=== PATIENT | male | born 1980 | race Caucasian/White ===

== ENCOUNTER 2017-04-16 08:51 | Emergency (ER) | payer OTHER ==
[~2017-04-16] VITALS: Ht 193 cm; Wt 108.9 kg
--- NOTE | 2017-04-16 08:55 | NUR ---
WESTON FROM ASSISTED FOR ALCOHOL WITHDRAWAL- LAST DRINK YESTERDAY. GIVEN 1 MG ATIVAN 2 HRS EARLY CHILDHOOD SPECIALIST. PATIENT IS A/OX 4. BREATHING EVEN AND UNLABORED. PATIENT HAS GENERALIZED SHAKING/TREMORS. SLIGHTLY HYPERTENSIVE, NO DISTRESS. SAFETY AND COMFORT MEASURSE IN PLACE. AWAITING MD ORDERS.
[2017-04-16] MEDS ORDERED: LORAZEPAM INJ 2 MG/ML VIAL IV ONE (09:00)
[2017-04-16] MEDS ORDERED: IV NS 0.9% 1,000 ML BAG IV ONE (09:00)
[2017-04-16] MEDS ORDERED: LORAZEPAM INJ 2 MG/ML VIAL ONE (09:02)
--- NOTE | 2017-04-16 09:05 | NUR ---
MUSHROOM PRESS OPERATOR AT BEDSIDE.
--- NOTE | 2017-04-16 09:10 | NUR ---
NEW IV STARTED ON LAC, 20 G. BLOOD DRAWN AND SENT TO LAB.
[2017-04-16 09:16] LABS: BASOPHILS % (AUTO) 0.7 % (0.0-2.0); EOSINOPHILS % (AUTO) 0.3 % (0.0-6.0); HEMATOCRIT 48 % (39-51); HEMOGLOBIN 16.7 g/dL (13.5-17.5); LYMPHOCYTES # (AUTO) 0.8 /CMM (0.8-4.8); LYMPHOCYTES % (AUTO) 12.7 % (20.0-44.0); MEAN CORPUSCULAR HEMOGLOBIN 34 PG (26.0-33.0); MEAN CORPUSCULAR HGB CONC 35 g/dl (31.0-36.0); MEAN CORPUSCULAR VOLUME 97 fL (80-96); MONOCYTES # (AUTO) 0.6 /CMM (0.1-1.30); MONOCYTES % (AUTO) 9.9 % (2.0-12.0); NEUTROPHILS # (AUTO) 4.8 /CMM (1.8-8.9); NEUTROPHILS % (AUTO) 76.4 % (43.0-81.0); PLATELET COUNT (AUTO) 176 /CMM (150-450); RDW COEFFICIENT OF VARIATION 11.8 (11.5-15.0); RED BLOOD CELL COUNT(AUTO) 4.93 MIL/uL (4.5-6.0); WHITE BLOOD COUNT (AUTO) 6.2 K/uL (4.3-11.0)
--- NOTE | 2017-04-16 09:16 | NUR ---
PATIENT MEDICATED PER MD ORDERS.
--- NOTE | 2017-04-16 09:25 | NUR ---
URINE OBTAINED AND SENT TO LAB.
[2017-04-16 09:38] LABS: ALANINE AMINOTRANSFERASE 190 U/L (12-78); ALBUMIN 4.5 g/dL (3.4-5.0); ALCOHOL, BLOOD < 3 mg/dL (0-0); ALKALINE PHOSPHATASE 92 U/L (46-116); ASPARTATE AMINOTRANSFERASE 274 U/L (15-37); BILIRUBIN,DIRECT 0.5 mg/dL (0.0-0.2); BILIRUBIN,TOTAL 1.3 mg/dL (0.2-1.0); CALCIUM, SERUM 9.9 mg/dL (8.5-10.1); CARBON DIOXIDE 24 mmol/L (21-32); CHLORIDE 100 mmol/L (98-107); GLUCOSE 122 mg/dL (74-106); POTASSIUM 4.1 mmol/L (3.5-5.1); SODIUM SERUM 140 mmol/L (136-145); UREA NITROGEN, BLOOD 5 mg/dL (7-18)
[2017-04-16 09:41] LABS: TROPONIN I < 0.017 ng/mL (0.00-0.056)
[2017-04-16 09:44] LABS: ACETAMINOPHEN 0 ug/ml (10-30); SALICYLATE 1.7 mg/dL (2.8-20.0)
[2017-04-16 09:49] LABS: APPEARANCE,URINE SL CLOUDY (CLEAR); BILIRUBIN,URINE 1+ (NEGATIVE); BLOOD, URINE 1+ Ery/uL (NEGATIVE); COLOR,URINE YELLOW (YELLOW); KETONES,URINE 3+ (NEGATIVE); LEUKOCYTE ESTERASE ,URINE NEGATIVE (NEGATIVE); NITRITE, URINE NEGATIVE (NEGATIVE); PROTEIN,URINE 1+ mg/dl (NEGATIVE); UGLUCOSE NEGATIVE (NEGATIVE); UROBILINOGEN,URINE 0.2 EU/dL (0.2)
[2017-04-16 09:55] LABS: BACTERIA,URINE Rare /HPF (None Seen); SQUAMOUS EPITHELIAL CELL,UR Few /HPF (None Seen)
[2017-04-16 10:04] VITALS: BP 152/111
--- NOTE | 2017-04-16 10:05 | NUR ---
PATIENT NOT MEDICALLY CLEARED FOR DISCHARGE BUT REFUSING TO BE ADMITTED. MD AT BEDSIDE DISCUSSING OPTIONS, PATIENT CHOSE TO LEAVE AMA. IV REMOVED FROM LAC, SITE SECURED WITH GAUZE AND TAPE. DISCHARGE INSTRUCTIONS PROVIDE TO PATIENT. PATIENT LEFT IN CUSTODY BACK TO DETENTION.
== END 2017-04-16 10:05 ==
LOC: ER 08:57
DX: F10.231 Alcohol dependence with withdrawal delirium (principal); Z53.20 Procedure and treatment not carried out because of patient's decision for unspecified reasons
CPT/HCPCS: 36415; 71045-TC; 80048-TC; 80076-TC; 80305; 81000-TC; 84484-TC; 85025-TC; A4606; G0480; J2060; J7030; Z7610

== ENCOUNTER 2018-12-30 16:37 | Emergency (ER) | payer MEDICAID, OTHER ==
[~2018-12-30] VITALS: Ht 182.9 cm; Wt 90.7 kg
--- NOTE | 2018-12-30 16:44 | NUR ---
Arvin matamoros in ED - 12/30/[address] at [address] BUNN AT [facility] FOR [facility].
[2018-12-30] MEDS ORDERED: RIFA550T PO (16:46)
[2018-12-30] MEDS ORDERED: MULT-447 PO (16:46)
[2018-12-30] MEDS ORDERED: ALPR0.25 PO (16:46)
[2018-12-30] MEDS ORDERED: MAGN400T26 PO (16:46)
[2018-12-30] MEDS ORDERED: SODI1TAB3 PO (16:46)
[2018-12-30] MEDS ORDERED: HYDR4TAB4 PO (16:46)
[2018-12-30] MEDS ORDERED: ONDA4TAB5 PO (16:46)
[2018-12-30] MEDS ORDERED: FOLI1TAB16 PO (16:46)
[2018-12-30] MEDS ORDERED: MIDO5TAB PO (16:46)
[2018-12-30] MEDS ORDERED: PROT946L PO (16:46)
[2018-12-30] MEDS ORDERED: PANT40TA2 PO (16:46)
[2018-12-30] MEDS ORDERED: THIA100T74 PO (16:46)
[2018-12-30] MEDS ORDERED: LACT20SO4 PO (16:46)
[2018-12-30] MEDS ORDERED: LACT1CAP61 PO (16:46)
[2018-12-30] MEDS ORDERED: PYRI25TA4 PO (16:46)
[2018-12-30] MEDS ORDERED: PENT400T17 PO (16:46)
--- NOTE | 2018-12-30 16:48 | NUR ---
PT BIBRA FROM [facility] C/O SOB AND ABDOMINAL DISTENSION. PT STATES LAST DRAINED 2-3 WEEKS AGO. PLACED ON MONITOR. CAME IN W/ NON REBREATHER AT 15L. TACHYCARDIC OTHERWISE STABLE. AWAITING MD MCGEE.
--- NOTE | 2018-12-30 16:52 | NUR ---
DR BUNN AT BEDSIDE FOR EVAL.
--- NOTE | 2018-12-30 16:52 | NUR ---
IV LINE STARTED BLOOD DRAWN AND SENT TO LAB.
[2018-12-30] MEDS ORDERED: LIDOCAINE 1%-EPI 1:100,000 50 ML VIAL IJ ONE (17:00)
[2018-12-30 17:01] LABS: BASOPHILS # (AUTO) 0.1 /CMM (0.0-0.2); EOSINOPHILS % (AUTO) 0.4 % (0.0-6.0); HEMATOCRIT 41 % (39-51); HEMOGLOBIN 13.9 g/dL (13.5-17.5); LYMPHOCYTES # (AUTO) 1.6 /CMM (0.8-4.8); LYMPHOCYTES % (AUTO) 17.4 % (20.0-44.0); MEAN CORPUSCULAR HGB CONC 34 g/dl (31.0-36.0); MEAN CORPUSCULAR VOLUME 97 fL (80-96); MONOCYTES # (AUTO) 0.6 /CMM (0.1-1.30); MONOCYTES % (AUTO) 6.5 % (2.0-12.0); NEUTROPHILS # (AUTO) 6.7 /CMM (1.8-8.9); NEUTROPHILS % (AUTO) 74.7 % (43.0-81.0); PLATELET COUNT (AUTO) 174 /CMM (150-450); RED BLOOD CELL COUNT(AUTO) 4.24 MIL/uL (4.5-6.0)
[2018-12-30 17:09] LABS: CALCIUM, SERUM 8.8 mg/dL (8.5-10.1); CARBON DIOXIDE 24 mmol/L (21-32); CHLORIDE 101 mmol/L (98-107); CREATININE 1.1 mg/dL (0.6-1.3); GLUCOSE 144 mg/dL (74-106); POTASSIUM 3.8 mmol/L (3.5-5.1); SODIUM SERUM 136 mmol/L (136-145); UREA NITROGEN, BLOOD 7 mg/dL (7-18)
[2018-12-30 17:21] LABS: B-TYPE NATRIURETIC PEPTIDE 77 PG/ML (0-125)
--- NOTE | 2018-12-30 17:45 | NUR ---
DR BUNN BACK AT BEDSIDE FOR ULTRASOUND GUIDED PARACENTESIS. CONSENT SIGNED.
--- NOTE | 2018-12-30 19:05 | NUR ---
PARACENTESIS DONE. 5.3 LITERS OF PERITONEAL FLUID COLLECTED. PT TOLERATED PROCEDURE WELL.
--- NOTE | 2018-12-30 19:22 | NUR ---
REPORT TO BRAND STRATEGIST NURSE LENO FOR [facility].
[2018-12-30] MEDS ORDERED: MORPHINE SULFATE INJ 2 MG/ML DISP.SYRIN ONE (19:28)
[2018-12-30] MEDS ORDERED: MORPHINE SULFATE INJ 2 MG/ML DISP.SYRIN IV ONE (19:30)
[2018-12-30] MEDS ORDERED: ONDANSETRON HCL/PF 4 MG/2 ML VIAL ONE (19:35)
--- NOTE | 2018-12-30 20:15 | NUR ---
[id number] [facility] E[facility] [id number].
[2018-12-30] MEDS ORDERED: ONDANSETRON HCL/PF 4 MG/2 ML VIAL IV ONE (20:30)
--- NOTE | 2018-12-30 20:51 | NUR ---
CALLED FACILITY FOR REPORT. SPOKE WITH NAKUL CHOW. REPORT GIVEN
--- NOTE | 2018-12-30 21:00 | NUR ---
AMBULANZ 114 AT BEDSIDE FOR PT TRANSPORT TO [facility]. P TIS STABLE FOR TRANSPIORT. NAD NOTED. REPORT GIVEN.
[2018-12-30 21:01] VITALS: BP 118/84
== END 2018-12-30 21:04 | disposition home or self-care (01) ==
LOC: ER 16:41
DX: R18.8 Other ascites (principal); R06.02 Shortness of breath; F10.20 Alcohol dependence, uncomplicated; K21.9 Gastro-esophageal reflux disease without esophagitis; R53.1 Weakness; R00.0 Tachycardia, unspecified; I50.9 Heart failure, unspecified; Y90.9 Presence of alcohol in blood, level not specified
CPT/HCPCS: 36415; 49083; 71045 ×2; 80048; 83880; 84484; 85025; 85730; 96374; 96375; 99285; J2270; J2405; J3490